=== PATIENT | male | born 1970 | race Caucasian/White ===

== ENCOUNTER 2019-09-07 08:17 | Emergency (ER) | payer OTHER ==
[2019-09-07] MEDS ORDERED: LIDOCAINE 1% 10 ML VIAL INJ ONE (08:41)
--- NOTE | 2019-09-07 08:43 | ED.PDOC ---
History of Present Illness - General Chief Complaint: Upper Extremity Injury Stated Complaint: right 4th finger injury Time Seen by Provider: 09/07/19 08:40 Source: patient Exam Limitations: no limitations - History of Present Illness Initial Comments: 49 yo M who presents for crush injury to R 4th finger. Pt states that just [employer] he jammed his finger between a trash can and the metal axle, it was immediately released. No pain or injury elsewhere. Denies weakness, numbness. Allergies/Adverse Reactions: Allergies NO KNOWN ALLERGY Allergy (Verified 09/07/19 08:31) Home Medications: Ambulatory Orders Acetaminophen W/ Codeine [Tylenol W/ CODEINE #3] 1 ea PO Q6H PRN #12 09/07/19 Amlodipine Besylate-Atorvastat [Amlodipine Besylate/Atorv 5-10 mg] 1 tab PO 09/07/19 Cephalexin Monohydrate [Keflex] 500 mg PO QID 10 Days #40 cap 09/07/19 Review of Systems - Review of Systems Musculoskeletal: States: other - R 4th finger injury Neurological: Denies: numbness, weakness Past Medical History (General) - Patient Medical History Hx Asthma: No Hx Cardiac Disorders: No Hx Pacemaker: No Hx Hypertension: Yes - Social History Hx Tobacco Use: No Family Medical History - Family History Mother Family History: No Known Physical Exam - Physical Exam General Appearance: Alert, Comfortable, No apparent distress, Well Developed, We ll Nourished Cardiovascular/Respiratory: normal peripheral pulses Wrist Exam: normal inspection, non-tender, no evidence of injury, normal ROM Hand Exam: nail injury - R 4th finger nailbed injury with nail removed however still attached to lateral skin tissue, no active bleeding, FROM, tendon exam intact, sensation intact, 2+ pulses Neuro/Tendon: normal sensation, normal motor functions, normal tendon functions Skin Exam: normal color, warm/dry Progress - Progress Progress: 09/07/19 09:56 I have explained and reviewed all results with the pt. Pt wound dressed, splint applied. Discussed need to call hand surgery today for follow up appointment in next two days. He agrees with plan. Wound care discussed, signs of infection discussed. I explained that emergent conditions may arise and to return to the ER for new, worsening, or any persistent conditions. I've explained the importance of f/u for recheck. All questions and concerns addressed at this time. Pt understands and agrees with plan. Pt well appearing, NAD, is stable for discharge. - Results/Orders Results/Orders: R hand XR: EXAM DESCRIPTION: Hand,Right 3 Views CLINICAL HISTORY: injury COMPARISON: None Available. TECHNIQUE: AP, LATERAL, AND OBLIQUE FINDINGS: The visualized bones appear well mineralized. Comminuted fracture of the tuft of the distal phalanx of the right fourth digit with associated significant soft tissue swelling. IMPRESSION: Comminuted fracture of the tuft of the distal phalanx of the right fourth digit with associated significant soft tissue swelling. Electronically signed by: Elo Suh MD 09/07/2019 9:06 AM CDT Procedures - Laceration/Wound Repair Finger Wound Length (cm): 2 Wound's Depth, Shape: nail-avulsed Wound Explored: clean Irrigated w/ Saline (cc's): 1,000 Anesthesia: 1% Lidocaine Wound Repaired With: sutures Suture Size/Type: 5:0, fast absorbing gut Number of Sutures: 2 Layer Closure?: Yes Deep Layer Suture Size/Type: 5:0, chromic Number Deep Layer Sutures: 1 Sterile Dressing Applied?: Yes Splint Applied?: Yes Progress: Nail bed repair performed, nail tacked down. Departure - Departure Clinical Impression: Nail bed injury, Open fracture of tuft of distal phalanx of finger Time of Disposition: 09:53 Disposition: Discharge to Home or Self Care Health Concerns: condition:stable Departure Forms: ED Discharge - Pt. Copy, Patient Portal Self Enrollment Instructions: Wound Care (DC), Nail Avulsion (DC) Referrals: Miguel York MD [Primary Care Provider] - 1-2 Weeks Prescriptions: Acetaminophen W/ Codeine [Tylenol W/ CODEINE #3] 1 ea PO Q6H PRN #12 PRN Reason: Pain Cephalexin Monohydrate [Keflex] 500 mg PO QID 10 Days #40 cap Home Medications: Ambulatory Orders Acetaminophen W/ Codeine [Tylenol W/ CODEINE #3] 1 ea PO Q6H PRN #12 09/07/19 Amlodipine Besylate-Atorvastat [Amlodipine Besylate/Atorv 5-10 mg] 1 tab PO 10/19 Cephalexin Monohydrate [Keflex] 500 mg PO QID 10 Days #40 cap 09/07/19 Additional Instructions: Please call the office of Dr. Sancho Mendoza MD, or if you prefer another hand surgeon today for appointment in two days. Orthopedic surgery - hand surgery [address] [facility], [place], [address] Go to, [facility] As needed, if symptoms worsen
--- NOTE | 2019-09-07 09:07 | RAD ---
EXAM DESCRIPTION: Hand,Right 3 Views CLINICAL HISTORY: injury COMPARISON: None Available. TECHNIQUE: AP, LATERAL, AND OBLIQUE FINDINGS: The visualized bones appear well mineralized. Comminuted fracture of the tuft of the distal phalanx of the right fourth digit with associated significant soft tissue swelling. IMPRESSION: Comminuted fracture of the tuft of the distal phalanx of the right fourth digit with associated significant soft tissue swelling. Electronically signed by: Elo Suh MD 09/07/2019 9:06 AM CDT
[2019-09-07 10:56] VITALS: BP 168/88; TEMP 97.9; O2SAT 97
== END 2019-09-07 10:50 | disposition home or self-care (01) ==
LOC: ER 08:17
DX: S62.634B Displaced fracture of distal phalanx of right ring finger, initial encounter for open fracture (principal); I10 Essential (primary) hypertension; W23.0XXA Caught, crushed, jammed, or pinched between moving objects, initial encounter; Y92.9 Unspecified place or not applicable